=== PATIENT | female | born 1980 | race American Indian/Alaskan Native ===

== ENCOUNTER 2017-05-02 07:38 | Emergency (ER) | payer OTHER ==
[2017-05-02 07:47] VITALS: BP 106/70
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
[2017-05-02] MEDS ORDERED: XYLOCAINE 2%/ EPI 1:200,000 INFILTRATI ONE ×2 (11:02→11:17)
== END 2017-05-02 11:56 | disposition home or self-care (01) ==
LOC: ED 07:38
DX: N75.1 Abscess of Bartholin's gland (principal); Z85.41 Personal history of malignant neoplasm of cervix uteri; N80.9 Endometriosis, unspecified; Z98.890 Other specified postprocedural states